=== PATIENT | female | born 1980 | race Caucasian/White ===

== ENCOUNTER 2020-02-12 21:34 | Emergency (ER) | payer OTHER, MEDICAID, SELFPAY ==
[2020-02-12 21:45] VITALS: BP 148/100; PULSE 93; RESP 18; TEMP 37.2; O2SAT 98; BMI 32.4
--- NOTE | 2020-02-12 21:56 | ED_ITS ---
HPI - Female Genitourinary General Chief complaint: Urogenital-Female Stated complaint: thinks UTI Time Seen by Provider: 02/12/20 21:41 Source: patient Mode of arrival: Ambulatory Limitations: no limitations History of Present Illness HPI Narrative: 39-year-old female smoker with noncontributory medical history presents with a chief complaint of 2 months of dysuria, frequency and urgency. Patient was seen and evaluated about 2 months ago for the same and was put on an antibiotic which she cannot remember. She states it got better for a week or 2 but has returned. She denies fever, chills, nausea, or vomiting. Related Data Allergies Allergy/AdvReac Type Severity Reaction Status Date / Time From COMPAZINE Allergy Mild Uncoded 12/03/17 12:24 PENICILLIN Allergy Mild Uncoded 12/03/17 12:24 From DILAUDID Allergy Unknown Uncoded 12/03/17 12:24 Review of Systems Constitutional Constitutional: Denies chills, Denies fatigue, Denies fever(s), Denies frequent falls, Denies lethargy and Denies weakness Eyes Eyes: Denies change in vision, Denies eye discharge, Denies irritation and Denies loss of vision ENT Ears, Nose, Mouth, and Throat: Denies change in voice, Denies dizziness, Denies neck pain, Denies sore throat and Denies throat swelling Cardiovascular Cardiovascular: Denies chest pain, Denies irregular heart rhythm, Denies lightheadedness, Denies palpitations, Denies dyspnea, Denies dyspnea on exertion and Denies orthopnea Respiratory Respiratory: Denies cough, Denies dyspnea, Denies dyspnea on exertion and Denies wheezing Gastrointestinal Gastrointestinal: Denies abdominal pain, Denies change in bowel habits, Denies diarrhea, Denies nausea and Denies vomiting Genitourinary Genitourinary: Reports dysuria Genitourinary: Reports difficulty voiding and Reports dysuria Musculoskeletal Musculoskeletal: Denies neck pain and Denies numbness Integumentary/Breasts Skin/Breast: Denies pruritus, Denies erythema, Denies rash and Denies wounds Neurologic Neurologic: Denies behavioral changes, Denies confusion, Denies dizziness, Denies frequent falls, Denies loss of vision, Denies numbness and Denies weakness Psychiatric Psychiatric: Denies anxiety, Denies behavioral changes, Denies confusion, Denies depression, Denies homicidal ideation and Denies suicidal ideation Endocrine Endocrine: Denies fatigue, Denies flushing and Denies palpitations Hematologic/Lymphatic Hematologic/Lymphatic: Denies easy bruising Allergic/Immunologic Allergic/Immunologic: Denies urticaria, Denies throat swelling and Denies wheezing Patient History tobacco type: cigarettes alcohol intake frequency: 0-2 drinks per day Substance Use Type: does not use Exam Narrative Exam Narrative: GEN: AOx3 and in mild distress EYES: Pupils are equal, round, and reactive to light and accommodation. Extraoccular muscles are intact bilaterally. There is no subconjunctival hemorrhage or exudate. CHEST: Lungs are clear to auscultation bilaterally and free of wheezes, rales, or rhonchi. Heart rate is regular rhythm, there are no murmurs, clicks, rubs, or gallops. There is no chest wall tenderness. ABD: Abdomen is soft and nontender. There is no guarding or rebound. Bowel sounds are normal in all 4 quadrants. There is no mass or organomegaly. BACK: No CVA Tenderness EXT: Full painless ROM of all extremities with no loss of sensation or strength. SKIN: Warm, pink, and dry. No erythema or rash Initial Vital Signs Initial Vital Signs: Vital Signs Temperature 98.9 F 02/12/20 21:45 Pulse Rate 93 H 02/12/20 21:45 Respiratory Rate 18 02/12/20 21:45 Blood Pressure 148/100 H 02/12/20 21:45 Pulse Oximetry 98 02/12/20 21:45 Course Orders Ordered: ED Orders 02/12/20 22:40 Chlamydia Gonorrhea PCR -URINE Stat Urine Culture Stat Urine Microscopic Stat Vital Signs Vital signs: Vital Signs - 8 hr 02/12/20 23:10 02/13/20 00:04 Pulse Rate 86 84 Respiratory Rate 16 Blood Pressure 136/87 Blood Pressure [Left Arm] 144/96 H Pulse Oximetry 100 100 MDM - Female Genitourinary Lab Data Labs: Lab Results 02/12/20 02/12/20 Range/Units 22:40 22:40 Urine RBC None seen (0-5/HPF) Urine WBC 1-5/hpf (0-5/HPF) Ur Squamous Epith Cells 1-5 /hpf (0-5/HPF) Calcium Oxalate Crystal Few H Urine Bacteria Many (>30) H (None) Ur Culture Indicated? Specimen cultured Ur Chlamydia DNA (PCR) Not detected N gonorrhoeae DNA (PCR) Not detected Urine Dip Bedside Urine Glucose Negative Bedside Urine Bilirubin - Negative Bedside Urine Ketone +/- 5 Urine Specific [place] 1.025 Bedside Urine Occult Blood - Negative Bedside Urine pH 6.0 Bedside Urine Protein +/- 15 Bedside Urine Urobilinogen +/- 1mg Bedside Urine Nitrite + Positive Bedside Urine Leukocytes - Negative Esterase Discharge Plan Departure Patient Disposition: Home Clinical Impression: Dysuria Discharge Date/Time: 02/13/20 00:04 Instructions: DI for Dysuria -- Adult Activity Restrictions/Additional Instructions: *You have been diagnosed with [dysuria] *What to do: *Follow up with your primary care provider in 2-3 days, call for an appointment. Let them know you were seen in the Emergency Department and that we ask that you be seen in follow up *Return to ER if you should have any new, worsening or concerning symptoms
--- NOTE | 2020-02-12 22:21 | PC.NURSE ---
Patient reports lower back pain for 1.5 months and states her urine smells like sulfur and that is what happens when I have UTI. reports seen 2 months ago and treated with abx. sx improved for one week then returned. She has not been seen since.
[2020-02-12 22:53] LABS: RBC Urine None Seen (0-5/HPF)
[2020-02-12 23:10] VITALS: BP 144/96; PULSE 86; O2SAT 100
[2020-02-12 23:10] LABS: Bacteria Urine Many (>30); Calcium Oxalate Crystals Urine Few; Culture Indicated Urine Specimen Cultured; Squamous Epithelial Cell Urine 1-5 /HPF (0-5/HPF); WBC Urine 1-5/HPF (0-5/HPF)
[2020-02-13 00:04] VITALS: BP 136/87; PULSE 84; RESP 16; O2SAT 100
[2020-02-13 00:44] LABS: Urine N gonorrhoeae NOT DETECTED
[2020-02-13 00:48] LABS: Urine Chlamydia NOT DETECTED
--- NOTE | 2020-02-13 00:58 | PC.NURSE ---
per request by the patient she was called to let her know the results of her chlamydia and gonorrhoeae test. provider aware and no new orders at this time.
== END 2020-02-13 00:04 | disposition home or self-care (01) ==
PROVIDERS: Emergency Provider Emergency Medicine
DX: R30.0 Dysuria (principal)
CPT/HCPCS: 81003; 81015; 87077; 87086; 87186; 87491; 87591; 99282

== ENCOUNTER 2021-04-23 19:02 | Emergency (ER) | payer OTHER, MEDICAID, SELFPAY ==
[2021-04-23 19:35] VITALS: BP 130/85; PULSE 90; RESP 17; TEMP 36.2; O2SAT 100
--- NOTE | 2021-04-24 01:51 | ED_ITS ---
HPI - Extremity Problem General Chief complaint: Extremity Problem,Nontraumatic Stated complaint: No Movement in Rt Wrist, Cold Time Seen by Provider: 04/23/21 20:36 History of Present Illness HPI Narrative: 41-year-old woman with history of intermittent IV drug use presents complaining that her right wrist does not work. She is able to use it to support herself and can move it somewhat but is having weakness with dorsiflexion of the wrist. It has been present for 2 days and is concerning her. She does not note obvious pain, abscess, swelling. She denies any fevers, cough, chills, abdominal pain, palpitations, dyspnea, vomiting or diarrhea. Related Data Previous Rx's Medication Instructions Recorded sulfamethoxazole 400 2 tab PO BID 10 Days #40 tab 04/24/21 mg-trimethoprim 80 mg tablet (Bactrim) Allergies Allergy/AdvReac Type Severity Reaction Status Date / Time hydromorphone [From Dilaudid] Allergy Severe Agitated Verified 04/23/21 19:40 Penicillins Allergy Unknown Verified 04/23/21 19:40 prochlorperazine Allergy Unknown Verified 04/23/21 19:40 [From Compazine] Review of Systems Review of Systems Narrative: Remainder of complete review of systems is otherwise unremarkable except for that included in the HPI. Patient History Social History Smoking Status: Current every day smoker Smoking Status: Current every day smoker tobacco type: cigarettes alcohol intake frequency: 0-2 drinks per day Alcohol type: hard liquor Substance Use Type: does not use Exam Narrative Exam Narrative: General: Alert appropriate in no acute distress Respiratory: Able to speak in full sentences, no obvious respiratory distress Skin: No obvious rashes, warm and dry Neurologic: Right wrist with slight weakness with dorsiflexion but sensation is intact. Right forearm: Some tenderness over the lateral antecubital fossa which was an area of recent IV injection. I suspect that she is beginning to develop an infection over that you can see slight redness over the dorsal surface the forearm to the wrist. There is no obvious abscess appreciated. She is tender to palpation over the slightly reddened area in the antecubital fossa. Psych: appropriate insight and affect, cooperative Initial Vital Signs Initial Vital Signs: Vital Signs Temperature 97.1 F L 04/23/21 19:35 Pulse Rate 90 08/30/21 19:35 Respiratory Rate 17 04/23/21 19:35 Blood Pressure 130/85 04/23/21 19:35 Pulse Oximetry 100 04/23/21 19:35 Course Vital Signs Vital signs: Vital Signs - 8 hr 04/24/21 02:16 Pulse Rate 90 Respiratory Rate 16 Blood Pressure 141/86 H Pulse Oximetry 99 MDM - Extremity (Nontraumatic) MDM Narrative Medical decision making narrative: 41-year-old woman complaining of weakness in her right wrist without other neurologic findings. I suspect that she is dev eloping infection secondary to IV injection site that is causing some tenderness and consequent nerve impairment. She is able to use the hand in all positions and push herself up from the bed so the sensation of weakness is difficult to completely capture on clinical exam. She will start on antibiotics for presumed infection and the prior IV site and she is safe for home discharge. Discharge Plan Departure Patient Disposition: Home Clinical Impression: Cellulitis Qualifiers: Site of cellulitis: extremity Site of cellulitis of extremity: upper extremity Laterality: right Qualified Code(s): L03.113 - Cellulitis of right upper limb Instructions: DI for Cellulitis -- Adult Activity Restrictions/Additional Instructions: Thank you for coming in today I am concerned that your developing an infection or even abscess abscess up near your elbow that is affecting the nerves to your wrist. There does not appear to be any obvious injury to your wrist or your hand. You do not show any signs of a stroke. I am going to start you on Bactrim twice a day to treat the infection and give you a sling to help with comfort. I suspect that within the next couple of days you will begin have sensation returning to your hand and better strength in your wrist. If you notice that your having increasing redness or swelling up near your elbow or develop an actual abscess, please feel free to return to the ER for further evaluation I hope you heal completely Prescriptions: New sulfamethoxazole-trimethoprim [Bactrim] 400-80 mg tablet 2 tab PO BID 10 Days Qty: 40 RF: 0
[2021-04-24 02:16] VITALS: BP 141/86; PULSE 90; RESP 16; O2SAT 99
== END 2021-04-24 02:16 | disposition home or self-care (01) ==
PROVIDERS: Emergency Provider Emergency Medicine
DX: L03.113 Cellulitis of right upper limb (principal)
CPT/HCPCS: 99281; 99282